=== PATIENT | female | born 1955 | race Caucasian/White ===

== ENCOUNTER 2018-04-21 09:47 | Emergency (ER) | payer BC ==
[2018-04-21] MEDS ORDERED: HYDROCODONE/APAP 5/325 MG TAB ONE ×2 (10:17→11:24)
--- NOTE | 2018-04-21 11:24 | RAD REPORT ---
EXAM DESCRIPTION: RAD - Wrist Right 3 View - 04/21/2018 10:47 am CLINICAL HISTORY: Right wrist pain status post injury FINDINGS: An impacted fracture involves the distal radius. A fracture of the ulnar styloid process i s suspected. No dislocation is seen
--- NOTE | 2018-04-21 11:52 | EDPHYS ---
Physician Documentation [facility] Name: Melanie Pabon Age: 62 yrs Sex: Female : 1955 Arrival Date: 04/21/2018 Time: 09:51 Bed 13 Private MD: None, None ED Physician Angus Durham HPI: 04/21 10:12 This 62 yrs old Female presents to ER via Ambulatory with complaints of Wrist jmm Injury. 10:12 The patient or guardian reports injury, pain. The complaints affect the. Onset: The jmm symptoms/episode began/occurred acutely, last night. Modifying factors: The symptoms are alleviated by holding still, OTC meds, ibuprofen, the symptoms are aggravated by movement. Associated signs and symptoms: Pertinent positives: Pertinent negatives: cyanosis distally, decreased sensation distally, numbness distally, tingling distally. This is a 62 year old female with a history of shingles that presents to the ED with right wrist pain and swelling beginning after a fall which occurred last night. The patient states that she took 600 mg of ibuprofen last night which relieved symptoms. Patient denies other injury. . Historical: - Allergies: 10:01 No Known Allergies; em - Home Meds: 10:01 Lyrica Oral [Active]; Valtrex Oral [Active]; em - PMHx: 10:01 shingles; em - PSHx: 10:01 None; em - Immunization history:: Adult Immunizations up to date. - Social history:: Smoking status: unknown. - Ebola Screening: : No symptoms or risks identified at this time. ROS: 10:12 Constitutional: Negative for fever, chills, and weight loss. jmm 10:12 MS/extremity: Positive for pain, swelling. 10:12 All other systems are negative. Exam: 10:12 Hand exam: ROM: intact in all extremities, radial, ulnar, median motor intact, distal jmm ulnar region tender to palpation, painful rom on extension and flexion of the wrist, no snuff box tenderness. 10:12 Skin: Appearance: Color: normal in color. 10:12 Constitutional: This is a well developed, well nourished patient who is awake, alert, and in no acute distress. Head/Face: atraumatic. Neck: Trachea midline, Supple Chest/axilla: Normal chest wall appearance and motion. Cardiovascular: Regular rate and rhythm. No edema appreciated Respiratory: Normal respirations, no respiratory distress appreciated Back: Normal ROM Skin: General appearance color normal Neuro: Awake and alert, normal gait Psych: Behavior is normal, Mood is normal, Patient is cooperative and pleasant Vital Signs: 09:56 BP 167 / 92; Pulse 70; Resp 18; Temp 96.8; Pulse Ox 98% on R/A; iw 10:49 BP 133 / 76; Pulse 69; Resp 16; Pulse Ox 97% on R/A; em 11:59 BP 142 / 83; Pulse 66; Resp 16; Pulse Ox 99% on R/A; em Procedures: 11:48 Splinting: Splint applied to right wrist using sugar tong, sling. applied by nurse. kendy Examined by me, post splint application: neurovascular intact, 2+ distal pulses palpable, brisk capillary refill noted, Patient tolerated well. MDM: 10:11 Patient medically screened. [facility] 11:48 Data reviewed: vital signs, nurses notes, radiologic studies, plain films. Counseling: kendy I had a detailed discussion with the patient and/or guardian regarding: the historical points, exam findings, and any diagnostic results supporting the discharge/admit diagnosis, radiology results, the need for outpatient follow up, to return to the emergency department if symptoms worsen or persist or if there are any questions or concerns that arise at home. 11:48 ED course: Patient is NVI intact in the ED, patient given compartment syndrome return jm precautions in the ED. 04/21 10:12 Order name: Wrist Right 3 View XRAY; Complete Time: 11:24 [facility] 04/21 10:56 Order name: Sugar Tong Forearm Splint; Complete Time: 11:40 [facility] Administered Medications: 10:12 Drug: Cactus 5 mg-325 mg 1 tabs Route: PO; hj 11:17 Follow up: Response: No adverse reaction hj 11:22 Drug: Cactus 5 mg-325 mg 1 tabs Route: PO; hj 11:23 Follow up: Response: No adverse reaction Disposition: 04/21/18 11:52 Discharged to Home. Impression: Right Distal Radius Fracture. - Condition is Stable. - Discharge Instructions: Radial Fracture. - Prescriptions for Ultram 50 mg Oral Tablet - take 1 tablet by ORAL route every 6 hours As needed; 20 tablet. - Medication Reconciliation Form, Thank You Letter, Antibiotic Education, Prescription Opioid Use form. - Follow up: Choco Wood MD; When: 2 - 3 days; Reason: Continuance of care. Addendum: 04/29/2018 20:11 Co-signature as Attending Physician, Angus Durham MD I agree with the assessment and k dr plan of care. Signatures: Dispatcher [employer] EDMS Angus Durham MD MD kdr Mickail, Joel, PA PA [facility] Srinath Andrews, HOUSING COUNSELOR HOUSING COUNSELOR em Simon Christianson, RN RN hj Corrections: (The following items were deleted from the chart) 04/21 12:00 11:52 04/21/2018 11:52 Discharged to Home. Impression: Right Distal Radius Fracture. em Condition is Stable. Forms are Medication Reconciliation Form, Thank You Letter, Antibiotic Education, Prescription Opioid Use. Follow up: Choco Wood; When: 2 - 3 days; Reason: Continuance of care. [facility]
--- NOTE | 2018-04-21 11:52 | ER ---
Nurse's Notes [facility] Name: Melanie Pabon Age: 62 yrs Sex: Female : 1955 Arrival Date: 04/21/2018 Time: 09:51 Bed 13 Private MD: None, None Diagnosis: Right Distal Radius Fracture Presentation: 04/21 09:57 Presenting complaint: Patient states: slipped on water yesterday c/o right wrist pain, em obvious swelling noted, limited ROM in right wrist, reports tingling in right hand, c/o right knee pain, denies hitting head, rates pain 5/10. Transition of care: patient was not received from another setting of care. Onset of symptoms was April 20, 2018. Risk Assessment: Do you want to hurt yourself or someone else? Patient reports no desire to harm self or others. Initial Sepsis Screen: Does the patient meet any 2 criteria? No. Patient's initial sepsis screen is negative. Does the patient have a suspected source of infection? No. Patient's initial sepsis screen is negative. Care prior to arrival: None. 09:57 Method Of Arrival: Ambulatory em 09:57 Acuity: LENORA 4 hj Triage Assessment: 10:16 General: Appears in no apparent distress. uncomfortable, Behavior is calm, cooperative, hj appropriate for age. Pain: Complains of pain in dorsum of right hand and dorsal aspect of right wrist. Musculoskeletal: Reports pain in dorsum of right hand and dorsal aspect of right wrist. Injury Description: Crush injury. Historical: - Allergies: 10:01 No Known Allergies; em - Home Meds: 10:01 Lyrica Oral [Active]; Valtrex Oral [Active]; em - PMHx: 10:01 shingles; em - PSHx: 10:01 None; em - Immunization history:: Adult Immunizations up to date. - Social history:: Smoking status: unknown. - Ebola Screening: : No symptoms or risks identified at this time. Screenin:09 Abuse screen: Denies threats or abuse. Nutritional screening: No deficits noted. em Tuberculosis screening: No symptoms or risk factors identified. Fall Risk None identified. Assessment: 10:08 General: Appears in no apparent distress. uncomfortable, Behavior is cooperative, em Reports slipping on some water, c/o right wrist and right knee pain, denies hitting head or LOC. Pain: Complains of pain in dorsum of right hand Pain currently is 5 out of 10 on a pain scale. Quality of pain is described as sharp, Pain began 1 day ago. Neuro: Level of Consciousness is awake, alert, Oriented to person, place, time, situation. Cardiovascular: Capillary refill < 3 seconds Patient's skin is warm and dry. Respiratory: Airway is patent Respiratory effort is even, unlabored, Respiratory pattern is regular, symmetrical. Derm: Skin is intact, Skin is pink, warm \T\ dry. Musculoskeletal: Capillary refill < 3 seconds, Range of motion: intact in right wrist Swelling present in dorsal aspect of left wrist. Injury Description:. 10:32 Reassessment: Patient appears in no apparent distress at this time. I agree with above iw assessment by Srinath Andrews LVN. 11:00 Reassessment: Patient appears in no apparent distress at this time. Patient and/or em family updated on plan of care and expected duration. Pain level reassessed. Patient is alert, oriented x 3, equal unlabored respirations, skin warm/dry/pink. 11:58 Reassessment: Patient appears in no apparent distress at this time. Patient and/or em family updated on plan of care and expected duration. Pain level reassessed. Patient is alert, oriented x 3, equal unlabored respirations, skin warm/dry/pink. Patient states feeling better. Vital Signs: 09:56 BP 167 / 92; Pulse 70; Resp 18; Temp 96.8; Pulse Ox 98% on R/A; iw 10:49 BP 133 / 76; Pulse 69; Resp 16; Pulse Ox 97% on R/A; em 11:59 BP 142 / 83; Pulse 66; Resp 16; Pulse Ox 99% on R/A; em ED Course: 09:51 Patient arrived in ED. mr 09:51 None, None is Private Physician. mr 09:57 Srinath Andrews LVN is Primary Nurse. em 09:58 Evgeny Horton PA is PHCP. [facility] 09:58 Angus Durham MD is Attending Physician. jmm 10:10 Arm band placed on. em 10:15 Triage completed. hj 10:17 Patient has correct armband on for positive identification. Bed in low position. Call hj light in reach. Side rails up X 1. Adult w/ patient. 10:46 Wrist Right 3 View XRAY In Process Unspecified. EDMS 11:51 Choco Wood MD is Referral Physician. [facility] 11:58 No provider procedures requiring assistance completed. Patient did not have IV access em during this emergency room visit. 12:00 Orthoglass splint: Sugar tong splint applied on right arm. Sling applied to right arm. mh5 Administered Medications: 10:12 Drug: Ramona 5 mg-325 mg 1 tabs Route: PO; hj 11:17 Follow up: Response: No adverse reaction hj 11:22 Drug: Ramona 5 mg-325 mg 1 tabs Route: PO; hj 11:23 Follow up: Response: No adverse reaction Outcome: 11:52 Discharge ordered by MD. [facility] 11:58 Discharged to home ambulatory. em 11:58 Condition: good 11:58 Discharge instructions given to patient, Instructed on discharge instructions, follow up and referral plans. medication usage, Demonstrated understanding of instructions, follow-up care, medications, Prescriptions given X 1. 12:00 Patient left the ED. em Signatures: Dispatcher [employer] EDMS Evgeny Horton PA PA Gela Chavez mr Andrews, Srinath, TOOL AND DIE DESIGNER TOOL AND DIE DESIGNER em Marie Chakraborty, Simon Jordan RN, Gela Mahoney RN [facility] Corrections: (The following items were deleted from the chart) 10:15 09:56 BP 167 / 92; Pulse 70bpm; Resp 18bpm; Pulse Ox 98% RA; Temp 36.8F; hj iw
== END 2018-04-21 12:00 | disposition home or self-care (01) ==
LOC: ER 09:47
PROC: 2W3CX1Z Immobilization of Right Lower Arm using Splint (ICD-10-PCS; principal; 2018-04-21)
DX: S52.501A Unspecified fracture of the lower end of right radius, initial encounter for closed fracture (principal); W18.30XA Fall on same level, unspecified, initial encounter; Y93.9 Activity, unspecified; Y92.9 Unspecified place or not applicable
CPT/HCPCS: 99284